=== PATIENT | male | born 1975 | race Caucasian/White ===

== ENCOUNTER 2019-08-14 19:43 | Emergency (ER) | payer OTHER ==
[~2019-08-14] VITALS: Ht 167.7 cm; Wt 93.0 kg
--- OUTSIDE RECORDS SUMMARY | 2019-08-14 19:50 | XMS REPORT ---
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 Phone ARLINE CALABRESE Unavailable PROBLEMS Unknown Problems ALLERGIES No Known Allergies ENCOUNTERS Encounter Location Date Diagnosis [facility] [id number] [place] [address] Mar, Bronchitis J40 [facility] [address] [id number] [address] Sep, Poison laly dermatitis L23.7 [facility] [address] [id number], [place] [address] Jun, Bronchitis J40 and Upper res piratory infection J06.9 [facility] [address] [id number], [place] [address] Jun, Acute nasopharyngitis J00 an d Sinus congestion R09.81 [facility] [address] [id number] [place] [address] Jun, Bronchitis J40 and Muscle sp asm M62.838 [facility] [address] [id number] [place] [address] May, IMMUNIZATIONS Vaccine Route Administration Date Status DEXAMETHASONE 4MG/ML (PER 1 MG) IM Intramuscular July 29, 2018 Administered DEPO MEDROL 80 MG/ML IM Intramuscular July 29, 2018 Administer ed SOCIAL HISTORY Never Assessed REASON FOR VISIT cough, sinus congestion x2 weeks and chest chidi today /...mireya/adrianne PLAN OF CARE Activity Details Follow Up if not improving with PCP or reg follow up Reason: VITAL SIGNS Height 5 7 in 2018-07-29 Weight 196 lbs 2018-07-29 Temperature 98.1 degrees Fahrenheit 2018-07-29 Heart Rate 80 bpm 2018-07-29 Respiratory Rate 20 2018-07-29 Oximetry 98 % 2018-07-29 Blood pressure systolic 138 mmHg 2018-07-29 Blood pressure diastolic 70 mmHg 2018-07-29 MEDICATIONS Medication Instructions Dosage Frequency Start Date End Date Duration S tatus Azithromycin 250 MG Orally Once a day 2 tablets on the fi rst day, then 1 tablet daily for 4 days 24h Jun, 5 day(s) Active RESULTS No Results PROCEDURES Procedure Date Ordered Result Body Site DEXAMETHASONE 4MG/ML (PER 1 MG) July 29, 2018 THER/PROPH/DIAG INJ, SC/IM July 29, 2018 DEPO MEDROL 80 MG/ML July 29, 2018 INSTRUCTIONS MEDICATIONS ADMINISTERED No Known Medications
--- OUTSIDE RECORDS SUMMARY | 2019-08-14 19:50 | XMS REPORT | Continuity of Care Document ---
Author Organization Unknown Address Unknown Phone Unavailable Allergies Active Description Code Type Severity Reaction Onset Reported/Identified Relationship to Patient Clinical Status Yes No Known Allergies No Known Allergies Drug Allergy Unknown N/A 11/29/2013 Medications There is no data. Problems There is no data. Procedures There is no data. Results Test Result Range METABOLIC PANEL, COMPREHN - 12/31/14 01: 00 POTASSIUM 4.1 mmol/L 3.5-5.3 ANION GAP 8 mmol/L 5-15 GLUCOSE 109 mg/dL 70-99 CALCIUM Note mg/dL 8.5-10.1 BLOOD UREA NITROGEN Note mg/dL 7-20 CREATININE Note mg/dL 0.7-1.3 SODIUM 139 mmol/L 135-148 CHLORIDE 109 mmol/L 98-110 AST/SGOT Note Units/L 10-37 ALT/SGPT Note Units/L < 66 CARBON DIOXIDE 27 mmol/L 21-32 TOTAL PROTEIN Note gm/dL 6.4-8.2 ALBUMIN Note gm/dL 3.4-5.0 BILI TOTAL Note mg/dL 0.0-1.0 ALKALINE PHOSPHATASE TOTAL Note IU/L 45- 117 CBC W/DIFF - 12/31/14 01:00 BASOPHIL # Note k/cumm 0.0-0.2 BASOPHIL % Note % 0-1 EOSINOPHIL # Note k/cumm 0.1-0.5 EOSINOPHIL % Note % 2-4 GRANULOCYTE # Note k/cumm 2.0-9.0 GRANULOCYTE % Note % 50-75 LYMPHOCYTE # Note k/cumm 1.0-4.0 LYMPHOCYTE % Note % 20-30 MEAN CELL HGB Note pg 27.0-33.0 MEAN CELL HGB CONCENTRATION Note g/dL 32 .0-37.0 MEAN CELL VOLUME Note fl 80.0-100.0 MONOCYTE # Note k/cumm 0.1-1.0 MONOCYTE % Note % 4-6 RED BLOOD CELL Note m/cumm 4.00-6.00 RED CELL DISTRIBUTION WIDTH Note % 11 .0-15.6 WHITE BLOOD CELL 13.0 k/cumm 5.0-10.0 HEMOGLOBIN 14.5 gm/dL 14.0-18.0 HEMATOCRIT 43.0 % 40.0-54.0 PLATELET COUNT 275 k/cumm 150-400 Encounters ACCT No. Visit Date/Time Discharge Status Pt. Type Provider Facility Loc./Unit Complaint [id number] 10/23/2018 14:40:00 10/23/2018 23:59: 59 [facility] Outpatient CHANEL BARRY [facility] [id number] 12/30/2014 23:04:00 015 23:59:59 [facility] Emergency [place] SAHNI, [facility] W.ROSALBA [id number] 11/29/2013 15:48:00 014 16:25:00 DIS Emergency [place] SAHNI, [facility] W.EDW [id number] 08/14/2019 19:45:[address] Emergency YU LEDBETTER DO [facility] ER FS FOOT LACERATION
[2019-08-14] MEDS ORDERED: LIDOCAINE 1% INJ 20 ML 20 ML VIAL ONE (19:56)
--- NOTE | 2019-08-14 20:27 | ED Lower Extremity ---
General Chief Complaint: Laceration Stated Complaint: FOOT LACERATION Nursing Triage Note: PT AMBULATE TO ROOM FS02 WITH C/O LAC TO HEAL OF LEFT FOOT. PT STATES HE STEPPED ON 'S RAZOR IN THE SHOWER. Nursing Sepsis Screen: No Definite Risk Source: patient Exam Limitations: no limitations History of Present Illness Date Seen by Provider: Aug 14, 2019 Time Seen by Provider: 19:55 Initial Comments 44-year-old male presents to the emergency room after lacerating his left medial heel after stepping on his 's razor in the shower. Through and through laceration into the subcutaneous fat on the medial aspect of the heel noted there is also has avulsion that is superficial before becomes a full laceration through the cutaneous layer patient denies any other injuries. He [place] right after the injury occurred. He has no cardiovascular or pulmonary renal or GI disease. Patient has given informed consent for therapeutic intervention including cleaning the wound anesthetizing the wound with 1% Xylocaine and approximating the edges with 3-0 suture. Patient understands this is an area that he feels very slowly sutures should remain in for a minimum of 2 weeks and perhaps longer. Patient reports his last TD Was 3-4 years ago. Wound is clean after anesthesia no foreign bodies were identified in the wound. Onset: just prior to arrival Pain/Injury Location: left heel (through and through laceration of the left heel medial aspect with an avulsion flap.) Method of Injury: other (stepped on Y Kohler in the shower) Modifying Factors: Improves With Movement Allergies and Home Medications Allergies Coded Allergies: No Known Allergies (Verified Allergy, Unknown, 08/14/19) Patient Home Medication List Home Medication List Reviewed: Yes Review of Systems Constitutional: see HPI, other (anxious about procedure is aware of the pain of anesthesia) EENTM: no symptoms reported Respiratory: no symptoms reported Cardiovascular: no symptoms reported Gastrointestinal: no symptoms reported Genitourinary: no symptoms reported Musculoskeletal: other (heel pain secondary to laceration into the heel) Skin: see HPI, lesions, other (avulsion flap that goes through the cutaneous layer into the medial aspect of the heel approximately 4 cm long with a flap that become superficial but does include some flesh) Psychiatric/Neurological: Anxiety Past Vslhkxn-Rwzpkm-Mwhabd Hx Past Med/Social Hx: Reviewed Nursing Past Med/Soc Hx Patient Social History Alcohol Use: Denies Use Recreational Drug Use: No Smoking Status: Current Everyday Smoker Type Used: Cigarettes 2nd Hand Smoke Exposure: Yes Recent Foreign Travel: No Contact w/Someone Who Travel: No Recent Infectious Disease Expo: No Recent Hopitalizations: No Physical Abuse: No Sexual Abuse: No Mistreated: No Fear: No Seasonal Allergies Seasonal Allergies: Yes Past Medical History Surgeries: No Respiratory: No Cardiac: No Neurological: No Genitourinary: No Gastrointestinal: No Musculoskeletal: No Endocrine: No HEENT: No Cancer: No Psychosocial: No Integumentary: No Blood Disorders: No Physical Exam Vital Signs Vital Signs - First Documented 08/14/19 19:53 Temp 37.3 Pulse 93 Resp 18 B/P (MAP) 137/81 (99) O2 Delivery Room Air Capillary Refill : Less Than 3 Seconds Height, Weight, BMI Height: '" Weight: lbs. oz. kg; 33.00 BMI Method: General Appearance: WD/WN, moderate distress (secondary to heel pain and pain a procedure for anesthesia), other (strongly mesomorphic build) HEENT: PERRL/EOMI, normal ENT inspection, pharynx normal Neck: non-tender, full range of motion, supple, normal inspection Cardiovascular: normal peripheral pulses, regular rate, rhythm, no edema, no gallop, no JVD, no murmur Respiratory: chest non-tender, lungs clear, normal breath sounds, no respiratory distress, no accessory muscle use Gastrointestinal: normal bowel sounds, non tender, soft, no organomegaly, no pulsatile mass Back: normal inspection, no CVA tenderness, no vertebral tenderness Hips: bilateral hip non-tender, bilateral hip normal inspection, bilateral hip normal range of motion, bilateral hip no evidence of injury Legs: bilateral leg non-tender, bilateral leg normal inspection, bilateral leg normal range of motion, bilateral leg no evidence of injury Knees: bilateral knee non-tender, bilateral knee normal inspection, bilateral knee normal range of motion, bilateral knee no evidence of injury Ankles: bilateral ankle non-tender, bilateral ankle normal inspection, bilateral ankle normal range of motion, bilateral ankle no evidence of injury Feet: right foot non-tender, right foot normal inspection, right foot normal range of motion, right foot no evidence of injury; left foot abrasions/lacerations (through and through laceration of the left heel medial aspect with a avulsion flap) Reflexes: 2+ knee (R), 2+ knee (L) Neurologic/Tendon: normal sensation, normal motor functions, normal tendon functions, responds to pain 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 The avulsion starts off superficial and then becomes deep with a full-thickness laceration. Patient is aware that the superficial aspect of the avulsion may fall off however the laceration has been approximated with 3 3-0 monofilament nylon sutures. After anesthesia the area was scrubbed aggressively with Betadine prior to placement no foreign bodies were seen.) Procedures/Interventions Wound Location: Lower Extremities (left heel) Wound Length (cm): 4 Wound's Depth, Shape: flap (patient stepped on a razor in the shower flap laceration observed) Wound Explored: clean (but still scrubbed after anesthesia with Betadine and rinsed) Betadine Prep?: Yes Anesthesia: 1% Lidocaine Volume Anesthetic (ccs): 3 Wound Debrided: moderate Suture: Ethlion Suture Size: 3-0 Number of Sutures: 3 Layer Closure?: 1 Number Deep Layer Sutures: 0 Sterile Dressing Applied?: Yes Progress Patient tolerated the procedure after anesthesia was placed he is aware the sutures should remain in for at least 14 days. Laceration is right on the medial aspect of the left heel Progress/Results/Core Measures Results/Orders My Orders Orders - YU LEDBETTER DO Lidocaine 1% Inj 20 Ml (Xylocaine 1% Inj (08/14/19 19:56) Vital Signs/I&O 08/14/19 19:53 Temp 37.3 Pulse 93 Resp 18 B/P (MAP) 137/81 (99) O2 Delivery Room Air Blood Pressure Mean: 99 Departure Impression Primary Impression: Laceration of left heel Disposition: 01 HOME, SELF-CARE Condition: Improved Departure-Patient Inst. Decision time for Depature: 20:34 Referrals: CHANEL BARRY MD (PCP/Family) Primary Care Physician Patient Instructions: Laceration Repair With Stitches (DC) Add. Discharge Instructions: Patient stepped on a razor in the shower cause a through and through laceration into the flesh of the left heel. He was anesthetized with 1% Xylocaine and cleaned with Betadine and rinsed the avulsion flap was approximated with 3-0 nylon suture. 3 independent simple sutures were applied. Patient understands and pretty avulsion will slough off at the laceration has been approximated. Keeping the wound clean and dry and post surgical intervention has been described as a patient in detail. Patient had a tetanus shot 3 years ago and should be up-to-date. All discharge instructions reviewed with patient and/or family. Voiced understanding. Work/School Note: Work Release Form Date Seen in the Emergency Department: Aug 14, 2019 Return to Work: Aug 19, 2019 Restrictions: Follow Up With [facility] Other Restrictions Listed Below: Keep wound clean and dry sutures out 2 weeks Copy Copies To 1: [facility]; CHANEL BARRY MD, ANTHONY H DO Aug 14, 2019 20:27
[2019-08-14 20:47] VITALS: BP 124/78
[2019-08-14] MEDS ORDERED: LIDOCAINE 1% INJ 20 ML 20 ML VIAL INJ ONE (21:00)
== END 2019-08-14 20:51 | disposition home or self-care (01) ==
LOC: ER FS 19:45
DX: S91.312A Laceration without foreign body, left foot, initial encounter (principal); W45.8XXA Other foreign body or object entering through skin, initial encounter; Y92.012 Bathroom of single-family (private) house as the place of occurrence of the external cause; Y93.E1 Activity, personal bathing and showering; F17.210 Nicotine dependence, cigarettes, uncomplicated
CPT/HCPCS: 12002